=== PATIENT | male | born 1995 | race Two or more races ===

== ENCOUNTER 2024-06-18 12:02 | Emergency (ER) | payer MEDICAID, SELFPAY ==
[2024-06-18 12:03] VITALS: BMI 29.5
--- NOTE | 2024-06-18 12:29 | PC.NURSE ---
Call pt from lobby and outside no answer @[phone]
--- NOTE | 2024-06-18 12:35 | PC.NURSE ---
Call pt from lobby and outside no answer @[phone]
[2024-06-18 12:57] VITALS: BP 136/88; PULSE 75; RESP 17; TEMP 36.6; O2SAT 96
--- NOTE | 2024-06-18 13:16 | PC.NURSE ---
STATES HE HAS TO GO TO [facility] [employer] SO HE HAS TO LEAVE.
== END 2024-06-18 13:16 | disposition left against medical advice (07) ==
LOC: SERX 12:44
PROVIDERS: Emergency Provider Emergency Medicine
DX: Z53.21 Procedure and treatment not carried out due to patient leaving prior to being seen by health care provider (principal)
CPT/HCPCS: 99281